=== PATIENT | female | born 1950 | race Two or more races ===

== ENCOUNTER 2016-08-09 19:14 | Inpatient (IN) | payer MEDICARE, MEDICAID ==
[~2016-08-09] VITALS: Ht 172.7 cm; Wt 78.6 kg
--- NOTE | 2016-08-09 20:00 | NUR ---
PT BIB C/O GENERALIZED WEAKNESS, BODY ACHES, NON-PRODUCTIVE COUGH AND "FLU SYMPTOMS". NAD NOTED. RESP EVEN UNLABORED. SKIN WARM NONDIAPHORETIC. PT IS HD DEPENDENT; LAST HD TODAY WITH NO COMPLICATIONS. PT IS AMBULATORY AT BASELINE BUT AT THIS POINT FEELS TOO WEAK TO AMBULATE. IN ER BED 10 ON MONITOR.
--- NOTE | 2016-08-09 20:28 | NUR ---
Johny EJ 20G IV STARTED BY SYED RM NP
[2016-08-09 20:37] LABS: BASOPHILS # (AUTO) 0.6 /CMM (0.0-0.2); BASOPHILS % (AUTO) 3.5 % (0.0-2.0); EOSINOPHILS % (AUTO) 0.3 % (0.0-6.0); HEMATOCRIT 34 % (33-45); HEMOGLOBIN 11.1 g/dL (11.5-14.8); LYMPHOCYTES # (AUTO) 0.6 /CMM (0.8-4.8); LYMPHOCYTES % (AUTO) 3.6 % (20.0-44.0); MEAN CORPUSCULAR HEMOGLOBIN 30 PG (26.0-33.0); MEAN CORPUSCULAR HGB CONC 32 g/dl (31.0-36.0); MEAN CORPUSCULAR VOLUME 93 fL (82-100); MONOCYTES # (AUTO) 0.9 /CMM (0.1-1.30); MONOCYTES % (AUTO) 5.7 % (2.0-12.0); NEUTROPHILS % (AUTO) 86.9 % (43.0-81.0); PLATELET COUNT (AUTO) 201 /CMM (150-450); RDW COEFFICIENT OF VARIATION 14.5 (11.5-15.0); RED BLOOD CELL COUNT(AUTO) 3.68 MIL/uL (4.0-5.2); WHITE BLOOD COUNT (AUTO) 16.1 K/uL (4.3-11.0)
[2016-08-09 20:44] LABS: CALCIUM, SERUM 9.1 mg/dL (8.5-10.1); CREATININE 5.9 mg/dL (0.6-1.3); POTASSIUM 5.4 mmol/L (3.5-5.1)
[2016-08-09 20:46] LABS: INR 1.01 (0.87-1.13); PROTHROMBIN TIME 10.5 SECS (9.5-12.7)
[2016-08-09 20:53] LABS: TROPONIN I 0.037 ng/mL (0.00-0.056)
[2016-08-09 20:54] LABS: LACTIC ACID 1.3 mmol/L (0.4-2.0)
[2016-08-09 20:58] LABS: ALBUMIN 3.5 g/dL (3.4-5.0); BILIRUBIN,DIRECT 0.2 mg/dL (0.0-0.2); BILIRUBIN,TOTAL 0.5 mg/dL (0.2-1.0); TOTAL PROTEIN, SERUM 8.5 g/dL (6.4-8.2)
--- NOTE | 2016-08-09 21:09 | NUR ---
EPIC PAGED, DR. MAYKEL Hernandez COMPLEX HUMAN RESOURCES MANAGER
--- NOTE | 2016-08-09 21:11 | NUR ---
CALLED NURSING SUP. FOR TELE BED
[2016-08-09 21:21] LABS: APPEARANCE,URINE Clear (CLEAR); BILIRUBIN,URINE Negative (NEGATIVE); BLOOD, URINE Trace-intact Ery/uL (NEGATIVE); COLOR,URINE Yellow (YELLOW); KETONES,URINE Negative (NEGATIVE); LEUKOCYTE ESTERASE ,URINE Negative (NEGATIVE); NITRITE, URINE Negative (NEGATIVE)
[2016-08-09] MEDS ORDERED: PIPERACILLIN /TAZOBACTAM 3.375 G in IV D5W 50 ML IV ONE (21:30)
[2016-08-09] MEDS ORDERED: FUROSEMIDE 20 MG/2 ML VIAL IV ONE (21:30)
[2016-08-09] MEDS ORDERED: VANCOMYCIN 1 GM in IV D5W 250 ML IV ONE (21:30)
[2016-08-09 21:33] LABS: UGLUCOSE 100 MG/DL mg/dL (NEGATIVE)
[2016-08-09 21:34] LABS: PROTEIN,URINE 300 mg/dl (NEGATIVE)
[2016-08-09 21:37] LABS: ADD URINE CULTURE YES; BACTERIA,URINE Many /HPF (None Seen); SQUAMOUS EPITHELIAL CELL,UR Few /HPF (None Seen); WBC,URINE 0-2 /HPF (0-3)
--- NOTE | 2016-08-09 21:45 | NUR ---
PT RESTING QUIETLY IN BED, NAD NOTED. ALL NEEDS ATTENDED TO. ON 2L VIA NC FOR SUPPORT.
[2016-08-09] MEDS ORDERED: VANCOMYCIN 1 GM VIAL ONE (22:05)
[2016-08-09] MEDS ORDERED: IV SET PRIMARY PUMP SET 1 EA INFUS.SET MC ONE (22:05)
[2016-08-09] MEDS ORDERED: PIPERACILLIN /TAZOBACTAM 3.375 G VIAL IV ONE (22:05)
[2016-08-09] MEDS ORDERED: FUROSEMIDE 20 MG/2 ML VIAL ONE (22:05)
[2016-08-09] MEDS ORDERED: IV D5W 0 ML IV ONE (22:05)
[2016-08-09] MEDS ORDERED: Z GUARD REMEDY 2 OZ OINT TP PRN (22:30)
[2016-08-09] MEDS ORDERED: ACETAMINOPHEN 325 MG TABLET PO PRN (22:30)
[2016-08-09] MEDS ORDERED: HYDROCODONE/APAP 5/325MG 1 EACH TABLET PO PRN (22:30)
[2016-08-09] MEDS ORDERED: ZOLPIDEM TARTRATE 5 MG TABLET PO PRN (22:30)
[2016-08-09] MEDS ORDERED: MAGNESIUM HYDROXIDE 30 ML UDC PO PRN (22:30)
[2016-08-09] MEDS ORDERED: MAG HYDROX/AL HYDROX/SIMETH 30 ML UDC PO PRN (22:30)
[2016-08-09] MEDS ORDERED: ONDANSETRON HCL/PF 4 MG/2 ML VIAL IVP PRN (22:30)
--- NOTE | 2016-08-09 22:35 | NUR ---
REPORT GIVEN TO GINO
[2016-08-09 22:50] VITALS: BP 126/63
--- NOTE | 2016-08-09 22:50 | NUR ---
DR JEAN AT BEDSIDE
[2016-08-09 22:55] VITALS: BP 126/63
--- NOTE | 2016-08-09 22:55 | NUR ---
PT TRANSPORTED TO TELE IN STABLE CONDITION VIA ACLS PROTOCOL
--- NOTE | 2016-08-09 22:58 | NUR ---
PROCESS PROJECT ENGINEER NOTES RECEIVED PT FROM THE ER, VIA STRETCHER BUT PT ABLE TO WALK FROM OUTSIDE THE DOOR TO HER BED INSIDE THE ROOM SAFELY WITH ASSISTANCE. AT BED SIDE. PT IS A/O X4 , VERBALLY RESPONSIVE. NO DISTRESS, ON 02 @ 2LPM VIA NC LISA WELL. IV SITE ON LEJ G20 INTACT AND PATENT, NO S/S OF INFILTRATION NOTED. DENIES ANY PAIN OR DISCOMFORT AT THIS TIME. DENIES ANY SOB. BODY ASSESSMENT DONE. NO S/S OF HYPO/ HYPERGLYCEMIA NOTED. ALL NEEDS ATTENDED AND MET. KEPT COMFORTABLE. CALL LIGHT WITHIN REACH. SAFETY PRECAUTIONS OBSERVED. WILL CONT TO MONITOR.
[2016-08-09] MEDS ORDERED: FOLI1TAB16 PO (23:55)
[2016-08-09] MEDS ORDERED: HYDR-4076 PO (23:55)
[2016-08-09] MEDS ORDERED: FOLI0.8T23 PO (23:55)
[2016-08-09] MEDS ORDERED: CLON0.1T PO (23:55)
[2016-08-09] MEDS ORDERED: METO1TAB39 PO (23:55)
[2016-08-09] MEDS ORDERED: CALC667C6 PO (23:55)
[2016-08-09] MEDS ORDERED: BLOO-668 IN (23:58)
[2016-08-10 04:00] VITALS: BP 129/70
[2016-08-10] MEDS ORDERED: PIPERACILLIN /TAZOBACTAM 2.25 G VIAL IV ONE (05:41)
[2016-08-10] MEDS ORDERED: IV SET PRIMARY PUMP SET 1 EA INFUS.SET MC ONE (05:43)
[2016-08-10] MEDS: PIPERACILLIN /TAZOBACTAM 2.25 G in IV D5W 50 ML IV SCH ×3 (06:02→22:03)
[2016-08-10 06:35] LABS: BASOPHILS % (AUTO) 0.1 % (0.0-2.0); EOSINOPHILS % (AUTO) 0.1 % (0.0-6.0); HEMATOCRIT 34 % (33-45); HEMOGLOBIN 10.9 g/dL (11.5-14.8); LYMPHOCYTES # (AUTO) 1.2 /CMM (0.8-4.8); LYMPHOCYTES % (AUTO) 8.4 % (20.0-44.0); MEAN CORPUSCULAR HEMOGLOBIN 30 PG (26.0-33.0); MEAN CORPUSCULAR HGB CONC 32 g/dl (31.0-36.0); MEAN CORPUSCULAR VOLUME 94 fL (82-100); MONOCYTES # (AUTO) 1.1 /CMM (0.1-1.30); MONOCYTES % (AUTO) 7.8 % (2.0-12.0); NEUTROPHILS # (AUTO) 11.9 /CMM (1.8-8.9); NEUTROPHILS % (AUTO) 83.6 % (43.0-81.0); PLATELET COUNT (AUTO) 210 /CMM (150-450); RDW COEFFICIENT OF VARIATION 15.2 (11.5-15.0); WHITE BLOOD COUNT (AUTO) 14.2 K/uL (4.3-11.0)
[2016-08-10 06:37] LABS: CALCIUM, SERUM 8.9 mg/dL (8.5-10.1); CREATININE 6.7 mg/dL (0.6-1.3); MAGNESIUM 2.2 mg/dL (1.8-2.4); PHOSPHORUS 2.8 mg/dL (2.5-4.9); POTASSIUM 5.7 mmol/L (3.5-5.1)
[2016-08-10 06:45] LABS: THYROID STIMULATING HORMONE 0.588 uIU/mL (0.358-3.74)
--- NOTE | 2016-08-10 06:57 | NUR ---
FINISH SPECIALIST NOTES PT IN BED, RESTING COMFORTABLE. PT IS A/O X4 , VERBALLY RESPONSIVE. NO DISTRESS, ON 02 @ 2LPM VIA NC LISA WELL. IV SITE ON LEJ G20 INTACT AND PATENT, NO S/S OF INFILTRATION NOTED. DENIES ANY PAIN OR DISCOMFORT AT THIS TIME. DENIES ANY SOB. BODY ASSESSMENT DONE. NO S/S OF HYPO/ HYPERGLYCEMIA NOTED. ALL NEEDS ATTENDED AND MET. KEPT COMFORTABLE. CALL LIGHT WITHIN REACH. SAFETY PRECAUTIONS OBSERVED. WILL ENDORSE TO NEXT SHIFT FOR PRASHANT.
[2016-08-10 07:12] VITALS: BP 133/69
--- NOTE | 2016-08-10 07:34 | NUR ---
IMAGING ASSISTANT OPENING NOTE PATIENT IS ALERT AND ORIENTED x4. NO PAIN AT THIS TIME. NO SOB OR DISTRESS NOTED.IV INTACT AND PATENT NO REDNESS OR SWELLING NOTED. SAFETY MEASURES IMPLEMENTED.CALL LIGHT WITHIN REACH. ON 2 L/MIN OF OXYGEN VIA NASAL CANNULA. WILL CONTINUE TO MONITOR
[2016-08-10 08:00] VITALS: BP 133/69
[2016-08-10] MEDS ORDERED: INSU100V27 SQ ×2 (08:07)
[2016-08-10] MEDS ORDERED: INSU100I19 SQ (08:07)
[2016-08-10] MEDS ORDERED: FEE PK DOSING 1 MIN EA MC ONE (08:50)
[2016-08-10] MEDS: PANTOPRAZOLE 40 MG TABLET.DR PO SCH (08:58)
[2016-08-10] MEDS ORDERED: DEXTROSE 50%-WATER 50 ML DISP.SYRIN IV PRN (09:30)
[2016-08-10] MEDS ORDERED: SODIUM POLYSTYRENE SULFONATE 15 G/60 ML BOTTLE PO ONE (09:30)
[2016-08-10] MEDS: METOPROLOL SUCCINATE 50 MG TAB.SR.24H PO SCH (09:58)
[2016-08-10] MEDS: HYDROCHLOROTHIAZIDE 25 MG TABLET PO SCH (09:58)
[2016-08-10] MEDS: BLOOD SUGAR DIAGNOSTIC 1 EACH STRIP IN SCH ×3 (11:45→22:03)
[2016-08-10] MEDS: INSULIN REGULAR, HUMAN 100 UNIT/ML 3 ML VIAL SQ PRN ×2 (11:47→22:32)
[2016-08-10 12:00] VITALS: BP 130/71
[2016-08-10] MEDS: CALCIUM ACETATE 667 MG TABLET PO SCH ×2 (13:13→18:00)
[2016-08-10 16:00] VITALS: BP 124/71
[2016-08-10] MEDS ORDERED: VANCOMYCIN 500 MG in IV D5W 100 ML IV PRN (16:00)
[2016-08-10] MEDS: hydrALAZINE HCL 25 MG TABLET PO SCH ×2 (16:06→16:18)
[2016-08-10] MEDS: CLONIDINE HCL 0.1 MG TABLET PO PRN (18:39)
--- NOTE | 2016-08-10 18:45 | NUR ---
TERRAPIN FISHER CLOSING NOTE PATIENT IS ALERT AND ORIENTED x4. NO PAIN AT THIS TIME. NO SOB OR DISTRESS NOTED. ALL DUE MEDICATION GIVEN ORDERED. SAFETY MEASURES IMPLEMENTED. CALL LIGHT WITHIN REACH AT ALL TIMES. RECEIVING HEMODIALYSIS AT THIS TIME. WILL ENDORSE TO EQUITY DIRECTOR NURSE
[2016-08-10 20:00] VITALS: BP 143/64
--- NOTE | 2016-08-10 20:57 | NUR ---
MS RN NOTE RECEIVED PATIENT AWAKE, ALERT AND ORIENTED IN BED. NO RESPIRATORY DISTRESS AT THIS TIME. PATIENT DENIES ANY PAIN OR DISCOMFORT. JUST COMPLETED HD. 2L OUT. TOLERATED WELL. NO BLEEDING NOTED. IV SITE INTACT. NO INFILTRATION NOTED. BED LOCKED AND IN LOWEST POSITION. SIDE RAILS UP, CALL LIGHT WITHIN REACH. WILL CONTINUE TO MONITOR.
[2016-08-10] MEDS: INSULIN DETEMIR 100 UNIT/ML CARTRIDGE SQ SCH (22:31)
--- NOTE | 2016-08-10 22:39 | NUR ---
ms rn note blood sugar 175. 3 units given. Will continue to monitor.
[2016-08-11] MEDS: PIPERACILLIN /TAZOBACTAM 2.25 G in IV D5W 50 ML IV SCH ×3 (05:39→21:21)
[2016-08-11 06:33] LABS: CALCIUM, SERUM 8.8 mg/dL (8.5-10.1); CREATININE 5.9 mg/dL (0.6-1.3)
--- NOTE | 2016-08-11 07:30 | NUR ---
MS RN OPENING NOTE PATIENT IS ALERT AND ORIENTED x4. NO PAIN AT THIS TIME. NO SOB OR DISTRESS NOTED. CALL LIGHT WITHIN REACH. SAFETY MEASURES IMPLEMENTED. ABLE TO COMMUNICATE NEEDS. IV INTACT AND PATENT NO REDNESS OR SWELLING NOTED. WILL CONTINUE TO MONITOR.
[2016-08-11 08:00] VITALS: BP 146/75
[2016-08-11] MEDS: VIT B CMPLX 3/FA/VIT C/BIOTIN 1 TAB TABLET PO SCH (08:15)
[2016-08-11] MEDS: PANTOPRAZOLE 40 MG TABLET.DR PO SCH (08:15)
[2016-08-11] MEDS: FOLIC ACID 1 MG TABLET PO SCH (08:15)
[2016-08-11] MEDS: CALCIUM ACETATE 667 MG TABLET PO SCH ×3 (08:15→17:17)
[2016-08-11] MEDS: BLOOD SUGAR DIAGNOSTIC 1 EACH STRIP IN SCH ×4 (08:17→21:38)
[2016-08-11] MEDS: hydrALAZINE HCL 25 MG TABLET PO SCH ×2 (08:17→16:20)
[2016-08-11] MEDS: HYDROCHLOROTHIAZIDE 25 MG TABLET PO SCH (08:18)
[2016-08-11] MEDS ORDERED: METOPROLOL SUCCINATE PO SCH (09:00)
[2016-08-11] MEDS ORDERED: HCTZ PO SCH (09:00)
[2016-08-11] MEDS ORDERED: [UNRECOGNIZED DRUG - OTHER] PO SCH (09:00)
[2016-08-11] MEDS: METOPROLOL SUCCINATE 50 MG TAB.SR.24H PO SCH (09:30)
--- NOTE | 2016-08-11 10:00 | NUR ---
MS RN NOTE HELD PATIENTS BLOOD PRESSURE THIS MORNING. WILL BE RECEIVING HEMODIALYSIS
[2016-08-11] MEDS: INSULIN REGULAR, HUMAN 100 UNIT/ML 3 ML VIAL SQ PRN ×2 (11:51→17:18)
[2016-08-11] MEDS ORDERED: IV SET PRIMARY PUMP SET 1 EA INFUS.SET MC ONE ×2 (14:07→21:26)
[2016-08-11 16:00] VITALS: BP 147/66
[2016-08-11] MEDS: LACTOBACILLUS RHAMNOSUS GG 1 EACH CAP.SPRINK PO SCH (16:18)
[2016-08-11] MEDS ORDERED: VANCOMYCIN 1 GM in IV D5W 250 ML IV ONE (17:00)
--- NOTE | 2016-08-11 18:21 | NUR ---
MS ANCHOR TACK PULLER NOTE PATIENT IS ALERT AND ORIENTED x4. NO PAIN AT THIS TIME. NO SOB OR DISTRESS NOTED. ALL DUE MEDICATION GIVEN ORDERED. CALL LIGHT WITHIN REACH AT ALL TIMES. SAFETY MEASURES IMPLEMENTED. RECEIVED HEMODIALYSIS THIS MORNING. NO SIGNIFICANT CHANGES WITH PATIENT. STABLE THROUGHOUT THE DAY. POSSIBLE DISCHARGE IN THE MORNING, WILL ENDORSE TO MOBILE SOLUTIONS ARCHITECT NURSE Addendum: 08/11/16 at 1823 by AQUILINO DAVID RN CLOSING
[2016-08-11 19:00] VITALS: BP 156/75
--- NOTE | 2016-08-11 19:30 | NUR ---
MS RN OPENING NOTES: PATIENT SITTING ON CHAIR, AOX4, BREATHING EVEN AND UNLABORED BUT NOTED SOME OCCASIONAL NON PRODUCTIVE COUGH. BREATH SOUNDS CLEAR AT UPPER LUNG BUCKLEY AND DIMINISHED AT BASES. APPEARS CALM AND IN NO DISTRESS. DENIES ANY PAIN OR HEADACHE AT THIS TIME. PATIENT HAS PIV ACCESS OVER L EJ, G 20 INTACT AND PATENT TO FLUSH. SIERRA AV FISTULA HAS PALPABLE THRILLS. PROVIDED FOR COMFORT AND SAFETY. WILL CONT TO MONITOR.
[2016-08-11 20:00] VITALS: BP 156/75
[2016-08-11] MEDS ORDERED: IV NS 0.9% 250 ML IV ONE (21:26)
[2016-08-11] MEDS ORDERED: SECONDARY IV SET 1 EA INFUS.SET MC ONE (21:26)
--- NOTE | 2016-08-11 22:00 | NUR ---
RN NOTES: PT'S BS CHECKED AT 123 MG/DL. NO REGULAR INSULIN COVERAGE NEEDED AT THIS TIME, ADMINISTERED ONLY LEVEMIR SCHEDULED. GAVE LIGHT SNACK TO PATIENT. WILL CONT TO MONITOR.
[2016-08-11] MEDS: INSULIN DETEMIR 100 UNIT/ML CARTRIDGE SQ SCH (22:44)
[2016-08-12 04:00] VITALS: BP 176/83
[2016-08-12] MEDS: PIPERACILLIN /TAZOBACTAM 2.25 G in IV D5W 50 ML IV SCH (04:32)
[2016-08-12] MEDS: CLONIDINE HCL 0.1 MG TABLET PO PRN (04:38)
--- NOTE | 2016-08-12 04:40 | NUR ---
RN NOTES: PATIENT'S BP CHECKED AT 176/83, HR: 71. ADMINISTERED CLONIDINE 0.1 MG PO. ADVISED PATIENT TO REMAIN IN BED AND ASK FOR ASSISTANCE IN SITTING UP. WILL CONT TO MONITOR.
[2016-08-12] MEDS ORDERED: VANCOMYCIN 500 MG in IV D5W 100 ML IV PRN (06:00)
[2016-08-12] MEDS: PANTOPRAZOLE 40 MG TABLET.DR PO SCH (06:31)
[2016-08-12] MEDS: BLOOD SUGAR DIAGNOSTIC 1 EACH STRIP IN SCH (06:31)
[2016-08-12] MEDS: INSULIN REGULAR, HUMAN 100 UNIT/ML 3 ML VIAL SQ PRN (06:33)
[2016-08-12 06:37] VITALS: BP 145/79
--- NOTE | 2016-08-12 07:04 | NUR ---
MS RN CLOSING NOTES: PATIENT IN BED, AOX4, ON O2 AT 2 LPM VIA NC. BREATHING EVEN AND UNLABORED. OCCASIONAL COUGHING WAS NOTED WHILE AWAKE. PIV OVER R EJ INTACT AND PATENT TO FLUSH. DUE MEDS GIVEN. BP RECHECKED AT 145/79 THIS AM. PROVIDED FOR COMFORT AND SAFETY. BED IN LOCKED AND LOWEST POSITION. SIDERAILS UP X3. WILL ENDORSE TO AM RN FOR PRASHANT.
--- NOTE | 2016-08-12 07:20 | NUR ---
ms rn Initial notes Received patient in bed, awake, head of bed elevated, no SOB or distress noted. On 2 lpm via NC and tolerated well. Alert and oriented x 4, verbally responsive and able to make needs known. IV intact and patent HL only. Kept patient clean and comfortable in bed, call light within patient reach, will continue to monitor accordingly.
[2016-08-12 07:41] LABS: BASOPHILS % (AUTO) 0.8 % (0.0-2.0); EOSINOPHILS # (AUTO) 0.5 /CMM (0.0-0.7); EOSINOPHILS % (AUTO) 9.7 % (0.0-6.0); HEMATOCRIT 35 % (33-45); HEMOGLOBIN 11.1 g/dL (11.5-14.8); LYMPHOCYTES % (AUTO) 18.4 % (20.0-44.0); MEAN CORPUSCULAR HEMOGLOBIN 30 PG (26.0-33.0); MEAN CORPUSCULAR HGB CONC 32 g/dl (31.0-36.0); MEAN CORPUSCULAR VOLUME 94 fL (82-100); MONOCYTES # (AUTO) 0.7 /CMM (0.1-1.30); MONOCYTES % (AUTO) 14.4 % (2.0-12.0); NEUTROPHILS # (AUTO) 2.9 /CMM (1.8-8.9); NEUTROPHILS % (AUTO) 56.7 % (43.0-81.0); PLATELET COUNT (AUTO) 216 /CMM (150-450); RDW COEFFICIENT OF VARIATION 15.4 (11.5-15.0); RED BLOOD CELL COUNT(AUTO) 3.72 MIL/uL (4.0-5.2); WHITE BLOOD COUNT (AUTO) 5.2 K/uL (4.3-11.0)
[2016-08-12 08:00] VITALS: BP 168/84
[2016-08-12 08:24] LABS: CALCIUM, SERUM 9.4 mg/dL (8.5-10.1); CREATININE 5.9 mg/dL (0.6-1.3); POTASSIUM 4.8 mmol/L (3.5-5.1)
[2016-08-12] MEDS: FOLIC ACID 1 MG TABLET PO SCH (08:27)
[2016-08-12] MEDS: LACTOBACILLUS RHAMNOSUS GG 1 EACH CAP.SPRINK PO SCH (08:27)
[2016-08-12] MEDS: hydrALAZINE HCL 25 MG TABLET PO SCH (08:27)
[2016-08-12] MEDS: VIT B CMPLX 3/FA/VIT C/BIOTIN 1 TAB TABLET PO SCH (08:27)
[2016-08-12] MEDS: CALCIUM ACETATE 667 MG TABLET PO SCH (08:27)
[2016-08-12 08:28] VITALS: BP 154/80
[2016-08-12] MEDS: HYDROCHLOROTHIAZIDE 25 MG TABLET PO SCH (08:28)
[2016-08-12] MEDS: METOPROLOL SUCCINATE 50 MG TAB.SR.24H PO SCH (08:28)
--- NOTE | 2016-08-12 10:15 | NUR ---
ms keg varnisher notes Discharge instructions given to patient and able to understand instructions. Prescription given. Signed discharge paper and belonging list. No complaint of pain or discomfort, nor chest pain or SOB. Removed IV access and pressured applied to prevent bleeding. Pictures taken and filed in the chart. Valu came to apple picker the patient. Patient left the hospital in stable condition. Vital signs checked and recorded. MD and charge nurse aware. Pneumonia vaccine not given due to refusal. Explained the risk and benefits x 3 and still refused. Flu vaccine is out of season. MD and charge nurse aware.
== END 2016-08-12 10:20 | disposition home or self-care (01) | DRG 193 ==
LOC: ER 19:19 → TELE 21:39 → MED 08-10 09:09
PROVIDERS: ADMIT Internal Medicine; ATTEND Internal Medicine
PROC: 5A1D60Z (ICD-10-PCS; principal; 2016-08-10)
DX: J15.9 Unspecified bacterial pneumonia (principal); N18.6 End stage renal disease; I12.0 Hypertensive chronic kidney disease with stage 5 chronic kidney disease or end stage renal disease; D63.8 Anemia in other chronic diseases classified elsewhere; E11.22 Type 2 diabetes mellitus with diabetic chronic kidney disease; E66.9 Obesity, unspecified; Z99.2 Dependence on renal dialysis; E87.5 Hyperkalemia; E78.5 Hyperlipidemia, unspecified; Z68.26 Body mass index [BMI] 26.0-26.9, adult; D72.829 Elevated white blood cell count, unspecified; Z95.0 Presence of cardiac pacemaker; E83.9 Disorder of mineral metabolism, unspecified
CPT/HCPCS: 36415; 71010-TC; 80048-TC; 80061-TC; 80076-TC; 80202-TC; 81000-TC; 82962-TC; 83605-TC; 83735-TC; 83880; 84100-TC; 84443-TC; 84484-TC; 85025-TC; 85730-TC; 87040-TC; 87081-TC; 87086-TC; 93307-TC; A4606; A6403; J1815; J1940; J2543; J3370; J7050; J7060; Z7610

== ENCOUNTER 2018-09-25 09:24 | Inpatient (IN) | payer MEDICARE, MEDICAID ==
[~2018-09-25] VITALS: Ht 172.7 cm; Wt 86.0 kg
[~2018-09-25 09:24] MED LIST: BLOO-668 IN; CALC667C6 PO; CLON0.1T PO; FOLI0.8T23 PO; FOLI1TAB16 PO; HYDR-4076 PO; INSU100I19 SQ; INSU100V27 SQ; METO1TAB39 PO
--- NOTE | 2018-09-25 09:45 | NUR ---
patient BIBRA 889 C/O DIARRHEA STARTED YESTERDAY, 5 BM THIS MORNING. PATIENT A&O X 3, NO ACUTE DISTRESS. AV SHUNT ON SIERRA. LAST HD YESTERDAY PER PATIENT
[2018-09-25] MEDS ORDERED: IV NS 0.9% 1,000 ML BAG IV ONE (10:00)
--- NOTE | 2018-09-25 10:02 | NUR ---
PATIENT REPORTS SHE DOESNT URINATE ANYMORE. DR RICHARDS MADE AWARE AND GAVE OK TO CANCEL UA
[2018-09-25 10:10] LABS: BASOPHILS % (AUTO) 0.1 % (0.0-2.0); EOSINOPHILS % (AUTO) 0.1 % (0.0-6.0); HEMATOCRIT 37 % (33-45); HEMOGLOBIN 12.3 g/dL (11.5-14.8); LYMPHOCYTES # (AUTO) 0.4 /CMM (0.8-4.8); LYMPHOCYTES % (AUTO) 4.1 % (20.0-44.0); MEAN CORPUSCULAR HGB CONC 33 g/dl (31.0-36.0); MEAN CORPUSCULAR VOLUME 98 fL (82-100); MONOCYTES # (AUTO) 1.1 /CMM (0.1-1.30); MONOCYTES % (AUTO) 12.3 % (2.0-12.0); NEUTROPHILS # (AUTO) 7.2 /CMM (1.8-8.9); NEUTROPHILS % (AUTO) 83.4 % (43.0-81.0); PLATELET COUNT (AUTO) 121 /CMM (150-450); RED BLOOD CELL COUNT(AUTO) 3.78 MIL/uL (4.0-5.2); WHITE BLOOD COUNT (AUTO) 8.6 K/uL (4.3-11.0)
[2018-09-25 10:16] LABS: CALCIUM, SERUM 9.1 mg/dL (8.5-10.1); CREATININE 5.5 mg/dL (0.6-1.3); POTASSIUM 3.8 mmol/L (3.5-5.1)
[2018-09-25 10:22] LABS: ALBUMIN 3.1 g/dL (3.4-5.0); BILIRUBIN,DIRECT 0.1 mg/dL (0.0-0.2); BILIRUBIN,TOTAL 0.5 mg/dL (0.2-1.0); TOTAL PROTEIN, SERUM 8.3 g/dL (6.4-8.2)
[2018-09-25] MEDS ORDERED: LINA5TAB PO (10:27)
[2018-09-25] MEDS ORDERED: PANT40TA4 PO (10:27)
[2018-09-25] MEDS ORDERED: METO-356 PO (10:27)
[2018-09-25] MEDS ORDERED: CLOP75TA15 PO (10:27)
--- NOTE | 2018-09-25 10:57 | NUR ---
BED 201-2
--- NOTE | 2018-09-25 11:47 | NUR ---
[facility] on-call paged- Dr. Kent
--- NOTE | 2018-09-25 12:53 | NUR ---
REPORT GIVEN TO RENATA SALVADOR FOR PRASHANT. PATIENT TO GO TO 207-2
[2018-09-25] MEDS ORDERED: Z GUARD REMEDY 2 OZ OINT TP PRN (13:30)
[2018-09-25] MEDS ORDERED: MAG HYDROX/AL HYDROX/SIMETH 30 ML UDC PO PRN (13:30)
[2018-09-25] MEDS ORDERED: ONDANSETRON HCL/PF 4 MG/2 ML VIAL IVP PRN (13:30)
[2018-09-25] MEDS ORDERED: MAGNESIUM HYDROXIDE 30 ML UDC PO PRN (13:30)
[2018-09-25] MEDS ORDERED: ZOLPIDEM TARTRATE 5 MG TABLET PO PRN (13:30)
[2018-09-25] MEDS ORDERED: HYDROCODONE/APAP 5/325MG 1 EACH TABLET PO PRN (13:30)
--- NOTE | 2018-09-25 13:36 | NUR ---
PATIENT TRANSFERRED TO [facility]IA [facility]. TRANSFERRED IN STABLE CONDITION. NO ACUTE DISTRESS. DENIES ANY PAIN OR DISCOMFORT.
--- NOTE | 2018-09-25 13:45 | NUR ---
MS/RN New admission New admission from emergency room with diagnosis of diarrhea and dehydration. Patient fully admitted, awaiting orders from Dr Kent.
[2018-09-25 14:00] VITALS: BP 142/78
[2018-09-25] MEDS: IV 1/2NS 1000 ML 1,000 ML IV PRN (15:02)
--- NOTE | 2018-09-25 15:30 | NUR ---
MS/RN S/B Dr Odonnell Seen by MD - orders entered and carried out. Still waiting for HDX to be arranged, patient's last dialysis was this morning, with Dr Jonas patients primary book retailer.
[2018-09-25 16:00] VITALS: BP 142/78
--- NOTE | 2018-09-25 17:00 | NUR ---
MS/RN Blood sugar Blood sugar at 5p - 157. Coverage non administered as patient not eating.
[2018-09-25] MEDS: BLOOD SUGAR DIAGNOSTIC 1 EACH STRIP IN SCH (17:42)
[2018-09-25] MEDS: hydrALAZINE HCL 25 MG TABLET PO SCH (17:42)
--- NOTE | 2018-09-25 18:45 | NUR ---
MS/RN End note Patient remains in stable condition, all needs attended. Will endorse to shift leader.
--- NOTE | 2018-09-25 19:07 | NUR ---
RN MS OPENING NOTES RECEIVED PATIENT IN BED AWAKE ALERT AND ORIENTED4, RESPIRATIONS EVEN AND UNLABORED WITH EQUAL RISE AND FALL OF CHEST, DENIES ANY PAIN OR DISCOMFORT AT THIS TIME, DENIES NAUSEA,IV SITE TO LEFT HAND #50G INTACT AND PATENT, IVF RUNNING ORDERED, NO REDNESS, NO INFILTRATION, FLUIDS OFFERED AND PROVIDED.REPOSITIONED, PERINEAL CARE PROVIDED, ORIENTED TO STAFF AND CALL LIGHT AND KEPT WITHIN REACH, SAFETY PRECAUTIONS IN PLACE,LOW BED AND LOCKED, REMAINS COMFORTABLE AT THIS TIME, ALL NEEDS ATTENDED WILL CONTINUE TO MONITOR AND ADDRESS NEEDS.
[2018-09-25 20:00] VITALS: BP 153/76
--- NOTE | 2018-09-25 20:00 | NUR ---
RN MS NOTES UPON PROVIDING PERINEAL CARE NOTED PERIANAL AREA WITH REDNESS AND EXCORIATION. KEPT CLEAN AND DRY, ZGUARD APPLIED FOR SKIN MANAGEMENT AND PROTECTION.
[2018-09-25 20:40] VITALS: BP 153/76
--- NOTE | 2018-09-25 22:27 | NUR ---
RN MS NOTES TEMPERATURE REASSESSED, NOTED 101.1 COOLING MEASURES PROVIDED, NOTIFIED HOSPITALIST NEW ORDER TO ADMINISTER TYLENOL. NO FURTHER ORDERS AT THIS TIME, WILL CONTINUE TO MONITOR FOR EFFECTIVENESS.
[2018-09-25] MEDS: ACETAMINOPHEN 325 MG TABLET PO PRN (22:29)
--- NOTE | 2018-09-25 22:29 | NUR ---
RN NOTES TYLENOL PRN ADMINISTERED FOR ELEVATED TEMPERATURE.
[2018-09-25 22:34] VITALS: BP 147/70
[2018-09-26 00:05] VITALS: BP 147/70
--- NOTE | 2018-09-26 00:05 | NUR ---
RN MS NOTES TEMPERATURE DECREASED TO 99.4. TYLENOL AND COOLING MEASURES EFFECTIVE.
[2018-09-26 06:45] LABS: BASOPHILS % (AUTO) 0.4 % (0.0-2.0); EOSINOPHILS % (AUTO) 0.5 % (0.0-6.0); HEMATOCRIT 39 % (33-45); HEMOGLOBIN 12.7 g/dL (11.5-14.8); LYMPHOCYTES # (AUTO) 0.4 /CMM (0.8-4.8); MEAN CORPUSCULAR HGB CONC 33 g/dl (31.0-36.0); MEAN CORPUSCULAR VOLUME 99 fL (82-100); MONOCYTES # (AUTO) 0.8 /CMM (0.1-1.30); MONOCYTES % (AUTO) 14.8 % (2.0-12.0); NEUTROPHILS # (AUTO) 4.4 /CMM (1.8-8.9); NEUTROPHILS % (AUTO) 77.3 % (43.0-81.0); PLATELET COUNT (AUTO) 130 /CMM (150-450); RED BLOOD CELL COUNT(AUTO) 3.98 MIL/uL (4.0-5.2); WHITE BLOOD COUNT (AUTO) 5.7 K/uL (4.3-11.0)
[2018-09-26 07:04] LABS: BILIRUBIN,TOTAL 0.3 mg/dL (0.2-1.0); CALCIUM, SERUM 9.3 mg/dL (8.5-10.1); MAGNESIUM 1.9 mg/dL (1.8-2.4); PHOSPHORUS 4.7 mg/dL (2.5-4.9); POTASSIUM 3.9 mmol/L (3.5-5.1)
--- NOTE | 2018-09-26 07:08 | NUR ---
RN MS CLOSING NOTES PATIENT IN BED AWAKE ALERT AND ORIENTED X 4, RESPIRATIONS EVEN AND UNLABORED WITH EQUAL RISE AND FALL OF CHEST, DENIES ANY PAIN OR DISCOMFORT AT THIS TIME,IV SITE TO LEFT HAND #50G INTACT AND PATENT, IVF RUNNING ORDERED, NO REDNESS, NO INFILTRATION, FLUIDS OFFERED AND PROVIDED.REPOSITIONED, PERINEAL CARE PROVIDED, NOTED PERIANAL REDNESS, ZGUARD APPLIED AWAITING WOUND CARE CONSULT,CALL LIGHT KEPT WITHIN REACH, SAFETY PRECAUTIONS IN PLACE,LOW BED AND LOCKED, REMAINS COMFORTABLE AT THIS TIME, ALL NEEDS ATTENDED WILL CONTINUE TO MONITOR AND ADDRESS NEEDS AND ENDORSE TO NEXT SHIFT.
[2018-09-26 07:21] LABS: CREATININE 7.6 mg/dL (0.6-1.3)
--- NOTE | 2018-09-26 07:30 | NUR ---
RN OPENING NOTE PT WAS RECEIVED IN BED AT LOWEST AND LOCKED POSITION WITH SIDE RAILS UP, A/O X4 BREATHING EVEN AND UNLABORED WITH NO S/S OF ANY DISTRESS OR PAIN AT THIS TIME, IV IS PATENT AND INTACT WITH IVF INFUSING, NOTED TO HAVE RECEIVED DIALYSIS YESTERDAY PER NIGHT RN, AWAITING FOR HRIS SPECIALIST TO SCHEDULE INPATIENT HD PER NIGHT RN, STOOL CULTURE RESULTS STILL PENDING, SAFETY PRECAUTIONS IN PLACE, CALL LIGHT WITHIN REACH, WILL MONITOR PT ACCORDINGLY.
[2018-09-26] MEDS: LINAGLIPTIN 5 MG TABLET PO SCH (08:26)
[2018-09-26] MEDS: VIT B CMPLX 3/FA/VIT C/BIOTIN 1 TAB TABLET PO SCH (08:26)
[2018-09-26] MEDS: FOLIC ACID 1 MG TABLET PO SCH (08:26)
[2018-09-26] MEDS: CALCIUM ACETATE 667 MG TABLET PO SCH (08:26)
[2018-09-26] MEDS: PANTOPRAZOLE 40 MG TABLET.DR PO SCH (08:26)
[2018-09-26] MEDS: METOPROLOL SUCCINATE 25 MG TAB.SR.24H PO SCH (08:27)
[2018-09-26] MEDS: CLOPIDOGREL BISULFATE 75 MG TABLET PO SCH (08:28)
[2018-09-26] MEDS: hydrALAZINE HCL 25 MG TABLET PO SCH ×3 (08:28→16:58)
[2018-09-26] MEDS: BLOOD SUGAR DIAGNOSTIC 1 EACH STRIP IN SCH ×3 (08:56→16:58)
[2018-09-26 09:13] VITALS: BP 136/78
--- NOTE | 2018-09-26 09:52 | NUR ---
WOUND CARE CONSULT: PT PRESENTS WITH PERIANAL REDNESS, PRESENT ON ADMISSION. PT NOTED TO BE INCONTINENT OF LOOSE STOOL. PT IS INDEPENDENT WITH BED MOBILITY. RECOMMENDATIONS MADE FOR SKIN PROTECTION AND DISCUSSED WITH NURSING STAFF. WILL SEE PRN. WEBB IN AGREEMENT WITH PLAN OF CARE. CURRENT ANTONTETE SCORE IS 18. Addendum: 09/26/18 at 0954 by RUDOLPH HAILE WNDNU Amended: Links added.
--- NOTE | 2018-09-26 10:00 | NUR ---
RN NOTE ISOLATION CART ORDERED AT THIS TIME UNTIL C.DIFF R/O
--- NOTE | 2018-09-26 13:00 | NUR ---
RN NOTE STOOL CULTURE CAME BACK NEGATIVE FOR C.DIFF
[2018-09-26] MEDS: IV 1/2NS 1000 ML 1,000 ML IV PRN (15:44)
[2018-09-26 17:32] VITALS: BP 141/68
--- NOTE | 2018-09-26 18:25 | NUR ---
RN CLOSING NOTE PT IN BED AT LOWEST AND LOCKED POSITION WITH SIDE RAILS UP, A/O X4 BREATHING EVEN AND UNLABORED WITH NO S/S OF ANY DISTRESS OR PAIN AT THIS TIME, IV IS PATENT AND INTACT WITH IVF INFUSING, SAFETY PRECAUTIONS IN PLACE, CALL LIGHT WITHIN REACH, ALL NEEDS ATTENDED TO, WILL ENDORSE TO DENTAL OFFICE ASSISTANT RN FOR PRASHANT.
--- NOTE | 2018-09-26 20:04 | NUR ---
MS RN NOTES RECEIVED PATIENT AWAKE IN BED WITH NO DISTRESS NOTED. CALL LIGHT WITHIN REACH. NO C/O PAIN OR DISCOMFORT. PERIPHERAL LINE INTACT AND PATENT. ENCOURAGED USE OF CALL LIGHT FOR ASSISTANCE AND VERBALIZED GOOD UNDERSTANDING. ROOM FREE OF CLUTTER AND ALL BELONGINGS KEPT NEAR BEDSIDE. WILL CONTINUE TO MONITOR.
--- NOTE | 2018-09-27 06:47 | NUR ---
MS RN NOTES PATIENT ASLEEP IN BED WITH NO DISTRESS NOTED. PERIPHERAL INTACT AND PATENT. ALL DUE MEDS GIVEN ORDERED WITH NO ASE NOTED. BED IN LOW LOCK SETTING. ROOM FREE OF CLUTTER AND BELONGINGS KEPT NEAR BEDSIDE. WILL ENDORSE TO ONCOMING SHIFT.
[2018-09-27 08:00] VITALS: BP 134/74
[2018-09-27] MEDS: CALCIUM ACETATE 667 MG TABLET PO SCH (08:13)
[2018-09-27] MEDS: PANTOPRAZOLE 40 MG TABLET.DR PO SCH (08:13)
[2018-09-27] MEDS: VIT B CMPLX 3/FA/VIT C/BIOTIN 1 TAB TABLET PO SCH (08:13)
[2018-09-27] MEDS: hydrALAZINE HCL 25 MG TABLET PO SCH ×3 (08:14→17:45)
[2018-09-27] MEDS: FOLIC ACID 1 MG TABLET PO SCH (08:14)
[2018-09-27] MEDS: CLOPIDOGREL BISULFATE 75 MG TABLET PO SCH (08:14)
[2018-09-27] MEDS: METOPROLOL SUCCINATE 25 MG TAB.SR.24H PO SCH (08:14)
[2018-09-27] MEDS: LINAGLIPTIN 5 MG TABLET PO SCH (08:14)
[2018-09-27] MEDS: BLOOD SUGAR DIAGNOSTIC 1 EACH STRIP IN SCH ×3 (09:00→17:00)
--- NOTE | 2018-09-27 13:30 | NUR ---
BEDSIDE HD WITH OUTPUT 1000ML. PATIENT STABLE
[2018-09-27 16:00] VITALS: BP 144/76
--- NOTE | 2018-09-27 16:07 | NUR ---
PATIENT NOTED WITH FEVER 100.6 . NOTIFIED
--- NOTE | 2018-09-27 16:13 | NUR ---
PER DR. SHAY HOLD D/C UNTIL TOMORROW MORNING
--- NOTE | 2018-09-27 16:20 | NUR ---
temperature rechecked: 99.4
[2018-09-27] MEDS: ACETAMINOPHEN 325 MG TABLET PO PRN (16:22)
--- NOTE | 2018-09-27 19:40 | NUR ---
MS/RN OPENING NOTES PT RECEIVED AWAKE, FAMILY AT BEDSIDE. ON ROOM AIR, BREATHING EVEN AND UNLABORED. DENIES SOB AND PAIN AT THIS TIME. IV TO LEFT HAND PATENT AND INTACT RUNNING IVF ORDERED. NO NEEDS EXPRESSED AT THIS TIME. HOB ELEVATED. BED IN LOW/LOCKED POSITION WITH CALL LIGHT IN REACH, BILAT. UPPER SIDE RAILS IN PLACE. DISCHARGE HELD TONIGHT PER MD FOR ELEVATED TEMP. WILL CONTINUE TO MONITOR
--- NOTE | 2018-09-27 19:53 | NUR ---
PATIENT IN BED WITH NO DISTRESS NOTED, REMEIN ON ROOM AIR. PERIPHERAL INTACT AND PATENT. ALL NEEDS ATTENDED. BED IN LOW LOCK SETTING, CALL LIGHT WITHIN REACH. WILL ENDORSE TO ONCOMING SHIFT FOR PRASHANT.
[2018-09-27 20:00] VITALS: BP 126/69
--- NOTE | 2018-09-28 06:59 | NUR ---
MS/RN CLOSING NOTES PT ASLEEP, RESPONSIVE TO NAME. REMAINS ON ROOM AIR, BREATHING EVEN AND UNLABORED. DENIES SOB AND PAIN AT THIS TIME. IV TO LEFT HAND PATENT AND INTACT, IVF CURRENTLY ON HOLD. SIERRA AV SHUNT NO BLEEDING NOTED. NO SIGNIFICANT CHANGES OVERNIGHT. ALL NEEDS MET. PT HAD X3 EPISODES OF LOOSE STOOLS. REFUSED BED BATH, ASSISTANCE WITH DIAPER CHANGE AND LINEN CHANGE DESPITE OFFERING MULTIPLE TIMES. NO SIGNIFICANT CHANGES OVERNIGHT. BED IN LOW/LOCKED POSITION WITH CALL LIGHT IN REACH, HOB ELEVATED. BILAT. UPPER SIDE RAILS IN PLACE. WILL ENDORSE TO DAY SHIFT RN PRASHANT.
[2018-09-28 08:00] VITALS: BP 125/64
[2018-09-28] MEDS: VIT B CMPLX 3/FA/VIT C/BIOTIN 1 TAB TABLET PO SCH (09:09)
[2018-09-28] MEDS: PANTOPRAZOLE 40 MG TABLET.DR PO SCH (09:09)
[2018-09-28] MEDS: CLOPIDOGREL BISULFATE 75 MG TABLET PO SCH (09:09)
[2018-09-28] MEDS: LINAGLIPTIN 5 MG TABLET PO SCH (09:09)
[2018-09-28] MEDS: CALCIUM ACETATE 667 MG TABLET PO SCH (09:09)
[2018-09-28] MEDS: FOLIC ACID 1 MG TABLET PO SCH (09:10)
[2018-09-28] MEDS: METOPROLOL SUCCINATE 25 MG TAB.SR.24H PO SCH (09:10)
[2018-09-28] MEDS: hydrALAZINE HCL 25 MG TABLET PO SCH ×3 (09:11→17:19)
[2018-09-28] MEDS: BLOOD SUGAR DIAGNOSTIC 1 EACH STRIP IN SCH ×3 (09:21→17:45)
[2018-09-28] MEDS: LOPERAMIDE HCL (2 MG CAP) 2 MG CAPSULE PO PRN ×3 (10:01→21:34)
--- NOTE | 2018-09-28 15:15 | NUR ---
NOTIFIED HOSPITALIST DR JUNG REGARDING CT ABDOMEN RESULTS. AWAITING FOR RESPONSE IF OK TO D/C PATIENT TO HOME
--- NOTE | 2018-09-28 15:55 | NUR ---
NEW ORDER PER : FLAGYL 500 MG Q8HR IV CEFTRIAXONE 1G. IV 24HR
[2018-09-28 16:00] VITALS: BP 138/61
[2018-09-28] MEDS: METRONIDAZOLE 500MG/ NS 100ML 500 MG in PREMIX 1 EA IV SCH (17:17)
[2018-09-28] MEDS ORDERED: METRONIDAZOLE 500MG/ NS 100ML 500 MG in PREMIX 1 EA IV SCH (18:00)
[2018-09-28] MEDS: CEFTRIAXONE 1 G in IV D5W 50 ML IV SCH (18:40)
--- NOTE | 2018-09-28 19:26 | NUR ---
PATIENT IN BED WITH NO DISTRESS NOTED, REMAINS ON ROOM AIR. PERIPHERAL IV INTACT AND PATENT. ALL NEEDS ATTENDED. BED IN LOW LOCK POSITION, CALL LIGHT WITHIN REACH. WILL ENDORSE TO NEXT SHIFT FOR PRASHANT.
--- NOTE | 2018-09-28 19:30 | NUR ---
MS RN OPENING NOTES Received patient A/O x4, awake on bed, on RA saturating 90%. Per patient, she is on O2 at home. Put on O2 via NC @ 2LPM, no SOB/respiratory distress noted, SpO2 98%. Still with LBM, watery stool with foul smell noted. Denies discomfort at this time. Good perineal care done. With 1/2 NS @ 50ml/hr infusing well at peripheral L hand G#20 no signs of infiltration noted. On fall precautions, call light within easy reach. Will continue to monitor accordingly.
[2018-09-28 20:00] VITALS: BP 120/67
[2018-09-28] MEDS: IV 1/2NS 1000 ML 1,000 ML IV PRN (21:11)
[2018-09-29] MEDS: METRONIDAZOLE 500MG/ NS 100ML 500 MG in PREMIX 1 EA IV SCH ×3 (00:20→16:37)
--- NOTE | 2018-09-29 06:45 | NUR ---
MS RN CLOSING NOTES Patient asleep on bed on Mcnally's position on bed. With O2 @ 2LPM, SpO2 98%. Still with LBM, total x3 within the shift. All due meds given as ordered. All nursing needs attended. Kept bed low and locked, call light within easy reach. Endorsed to the next shift.
[2018-09-29 08:00] VITALS: BP 125/84
[2018-09-29 08:56] LABS: BASOPHILS % (AUTO) 0.2 % (0.0-2.0); EOSINOPHILS % (AUTO) 5.7 % (0.0-6.0); HEMATOCRIT 39 % (33-45); HEMOGLOBIN 12.6 g/dL (11.5-14.8); LYMPHOCYTES # (AUTO) 0.6 /CMM (0.8-4.8); LYMPHOCYTES % (AUTO) 10.6 % (20.0-44.0); MEAN CORPUSCULAR HGB CONC 32 g/dl (31.0-36.0); MEAN CORPUSCULAR VOLUME 99 fL (82-100); MONOCYTES # (AUTO) 1.1 /CMM (0.1-1.30); NEUTROPHILS # (AUTO) 3.9 /CMM (1.8-8.9); NEUTROPHILS % (AUTO) 65.5 % (43.0-81.0); PLATELET COUNT (AUTO) 136 /CMM (150-450); RED BLOOD CELL COUNT(AUTO) 3.92 MIL/uL (4.0-5.2); WHITE BLOOD COUNT (AUTO) 5.9 K/uL (4.3-11.0)
[2018-09-29] MEDS: BLOOD SUGAR DIAGNOSTIC 1 EACH STRIP IN SCH ×3 (09:00→17:59)
[2018-09-29] MEDS: hydrALAZINE HCL 25 MG TABLET PO SCH ×3 (09:00→16:39)
[2018-09-29 09:03] LABS: CALCIUM, SERUM 8.4 mg/dL (8.5-10.1); POTASSIUM 3.9 mmol/L (3.5-5.1)
[2018-09-29] MEDS: PANTOPRAZOLE 40 MG TABLET.DR PO SCH (09:03)
[2018-09-29] MEDS: LINAGLIPTIN 5 MG TABLET PO SCH (09:03)
[2018-09-29] MEDS: FOLIC ACID 1 MG TABLET PO SCH (09:03)
[2018-09-29] MEDS: CALCIUM ACETATE 667 MG TABLET PO SCH (09:03)
[2018-09-29] MEDS: CLOPIDOGREL BISULFATE 75 MG TABLET PO SCH (09:04)
[2018-09-29] MEDS: VIT B CMPLX 3/FA/VIT C/BIOTIN 1 TAB TABLET PO SCH (09:04)
[2018-09-29] MEDS: METOPROLOL SUCCINATE 25 MG TAB.SR.24H PO SCH (09:06)
[2018-09-29 09:09] LABS: CREATININE 10.9 mg/dL (0.6-1.3)
--- NOTE | 2018-09-29 09:10 | NUR ---
IV removed due to leaking
--- NOTE | 2018-09-29 09:30 | NUR ---
Unsuccessful attempt to insert a new IV line. Called ICU nurse for help
--- NOTE | 2018-09-29 10:10 | NUR ---
Unsuccessful attempt to insert IV line by ICU nurse. Will request a midline.
[2018-09-29 13:34] LABS: OCCULT BLOOD STOOL POSITIVE (NEGATIVE)
--- NOTE | 2018-09-29 15:25 | NUR ---
bedside HD with output 2000L . Patient in stable condition , VS within normal range, no distress noted
--- NOTE | 2018-09-29 15:28 | NUR ---
left upper arm new midline G 18. Flushing well.
[2018-09-29] MEDS: CEFTRIAXONE 1 G in IV D5W 50 ML IV SCH (17:51)
--- NOTE | 2018-09-29 19:10 | NUR ---
Patient resting in bed . With O2 @ 2LPM, saturating well. Patient had 2 loose small BM. All nursing needs attended. Kept bed low and locked, call light within easy reach. Will Endorse to the next shift.
--- NOTE | 2018-09-29 19:40 | NUR ---
MS/RN OPENING NOTES PT RECEIVED AWAKE, RESTING COMFORTABLY IN BED. A/OX3. ON 2L O2 VIA NC, BREATHING EVEN AND UNLABORED. DENIES SOB AND PAIN AT THIS TIME. IN NO ACUTE DISTRESS. CLEOPATRA MIDLINE PATENT AND INTACT. IVF ON HOLD. SIERRA SHUNT WITH NO SIGNS OF BLEEDING AT THIS TIME. BED IN LOW/LOCKED POSITION WITH CALL LIGHT IN REACH. BILAT. UPPER SIDE RAILS IN PLACE AND HOB ELEVATED. WILL CONTINUE TO MONITOR
[2018-09-29 20:00] VITALS: BP 121/72
[2018-09-30] MEDS: METRONIDAZOLE 500MG/ NS 100ML 500 MG in PREMIX 1 EA IV SCH ×3 (01:44→17:55)
--- NOTE | 2018-09-30 07:02 | NUR ---
MS/RN CLOSING NOTES PT AWAKE, RESTING COMFORTABLY IN BED. ON/OFF 2L O2 VIA NC, BREATHING EVEN AND UNLABORED. DENIES SOB AND PAIN AT THIS TIME. NO SIGNIFICANT CHANGES OVERNIGHT. CLEOPATRA MIDLINE PATENT AND INTACT. ALL NEEDS MET. BED IN LOW/LOCKED POSITION WITH CALL LIGHT IN REACH, HOB ELEVATED. BILAT. UPPER SIDE RAILS IN PLACE. WILL ENDORSE TO DAY SHIFT RN PRASHANT.
--- NOTE | 2018-09-30 07:54 | NUR ---
MS RN OPENING NOTES RECEIVED PT LAYING IN BED W/ HOB SLIGHTLY ELEVATED. PT IS EASILY AROUSABLE. PT IS A/O X4, AFEBRILE. RESPIRATIONS ARE EVEN AND UNLABORED, NOT IN ANY ACUTE DISTRESS NOTED. PT DENIES ANY PAIN AT THIS TIME, NO C/O SOB,N/V. IV SITE TO CLEOPATRA MIDLINE INTACT, NO INFILTRATION NOTED. DRESSING KEPT CLEAN AND DRY. SAFETY MEASURES ARE IN PLACE. INSTRUCTED PT TO USE CALL LIGHT WHEN ASSISTANCE IS NEEDED, CALL LIGHT IS LEFT WITHIN REACH. WILL MONITOR THROUGHOUT SHIFT FOR CONTINUITY OF CARE.
[2018-09-30 08:00] VITALS: BP 138/74
[2018-09-30] MEDS: CLOPIDOGREL BISULFATE 75 MG TABLET PO SCH (08:46)
[2018-09-30] MEDS: LINAGLIPTIN 5 MG TABLET PO SCH (08:46)
[2018-09-30] MEDS: VIT B CMPLX 3/FA/VIT C/BIOTIN 1 TAB TABLET PO SCH (08:46)
[2018-09-30] MEDS: CALCIUM ACETATE 667 MG TABLET PO SCH (08:46)
[2018-09-30] MEDS: METOPROLOL SUCCINATE 25 MG TAB.SR.24H PO SCH (08:46)
[2018-09-30] MEDS: FOLIC ACID 1 MG TABLET PO SCH (08:46)
[2018-09-30] MEDS: PANTOPRAZOLE 40 MG TABLET.DR PO SCH (08:46)
[2018-09-30] MEDS: BLOOD SUGAR DIAGNOSTIC 1 EACH STRIP IN SCH ×3 (08:47→16:26)
[2018-09-30] MEDS: hydrALAZINE HCL 25 MG TABLET PO SCH ×3 (08:47→16:25)
--- NOTE | 2018-09-30 10:44 | NUR ---
MS SALVADOR NOTES-- PT WAS SEEN AND EXAMINED BY DR. NAREN Reyes/ ORDERS TO HOLD PLAVIX, CONSULT WITH DR. BAPTISTE. READ BACK AND VERIFIED ORDERS. CARRIED OUT. Addendum: 09/30/18 at 1045 by JAMES YANEZ RN INCORRECT PT. DISREGARD NOTE.
--- NOTE | 2018-09-30 10:55 | NUR ---
MS RN NOTES-- PT WAS SEEN AND EXAMINED BY NISHI COLE. POSSIBLE D/C IN AM. WILL CONTINUE TO MONITOR.
--- NOTE | 2018-09-30 14:58 | NUR ---
MS RN NOTES-- PT ABLE TO MAKE NEEDS KNOWN. NEEDS MET AND RENDERED. PT DOES NOT APPEAR TO BE IN ANY ACUTE DISTRESS. WILL CONTINUE TO MONITOR.
[2018-09-30 16:00] VITALS: BP 143/67
[2018-09-30] MEDS: CEFTRIAXONE 1 G in IV D5W 50 ML IV SCH (16:26)
--- NOTE | 2018-09-30 18:41 | NUR ---
MS RN CLOSING NOTES ALL DUE MEDS GIVEN, NEEDS MET AND RENDERED. PT IS A/O X4, AFEBRILE. RESPIRATIONS ARE EVEN AND UNLABORED, NOT IN ANY ACUTE DISTRESS NOTED. PT DENIES ANY PAIN AT THIS TIME, NO C/O SOB, N/V. MIDLINE TO CLEPOATRA INTACT, NO INFILTRATION NOTED. DRESSING KEPT CLEAN AND DRY. SAFETY MEASURES ARE IN PLACE. REMINDED PT TO USE CALL LIGHT WHEN ASSISTANCE IS NEEDED, CALL LIGHT IS LEFT WITHIN REACH. WILL ENDORSE TO NEXT SHIFT FOR CONTINUITY OF CARE.
--- NOTE | 2018-09-30 19:35 | NUR ---
MS/RN OPENING NOTES PT RECEIVE AWAKE, USING THE RESTROOM. ON ROOM AIR, BREATHING EVEN AND UNLABORED. DENIES SOB AND PAIN AT THIS TIME. ASSISTED BACK TO THE BED. CLEOPATRA MIDLINE PATENT AND INTACT. BED IN LOW/LOCKED POSITION WITH CALL LIGHT IN REACH. BILAT. UPPER SIDE RAILS IN PLACE. HOB ELEVATED .WILL CONTINUE TO MONITOR
[2018-09-30 20:00] VITALS: BP 117/43
[2018-10-01] MEDS: METRONIDAZOLE 500MG/ NS 100ML 500 MG in PREMIX 1 EA IV SCH ×2 (00:41→08:33)
[2018-10-01 06:25] LABS: BASOPHILS % (AUTO) 0.7 % (0.0-2.0); EOSINOPHILS % (AUTO) 11.4 % (0.0-6.0); HEMATOCRIT 37 % (33-45); HEMOGLOBIN 12.1 g/dL (11.5-14.8); LYMPHOCYTES # (AUTO) 0.9 /CMM (0.8-4.8); LYMPHOCYTES % (AUTO) 13.3 % (20.0-44.0); MEAN CORPUSCULAR HGB CONC 32 g/dl (31.0-36.0); MEAN CORPUSCULAR VOLUME 98 fL (82-100); MONOCYTES # (AUTO) 1.3 /CMM (0.1-1.30); MONOCYTES % (AUTO) 20.3 % (2.0-12.0); NEUTROPHILS # (AUTO) 3.5 /CMM (1.8-8.9); NEUTROPHILS % (AUTO) 54.3 % (43.0-81.0); PLATELET COUNT (AUTO) 158 /CMM (150-450); RED BLOOD CELL COUNT(AUTO) 3.83 MIL/uL (4.0-5.2); WHITE BLOOD COUNT (AUTO) 6.5 K/uL (4.3-11.0)
[2018-10-01 06:30] LABS: CALCIUM, SERUM 8.1 mg/dL (8.5-10.1)
[2018-10-01 06:37] LABS: CREATININE 11.5 mg/dL (0.6-1.3)
--- NOTE | 2018-10-01 07:57 | NUR ---
MS/RN CLOSING NOTES PT RESTING COMFORTABLY IN BED. ON ROOM AIR, BREATHING EVEN AND UNALBORED. DENIES SOB AND PAIN. NO SIGNIFICANT CHANGES OVERNIGHT. CLEOPATRA MIDLINE PATENT AND INTACT. SIERRA AV SHUNT WITH BRUITT/THRILL. BED IN LOW/LOCKED POSITION WITH CALL LIGHT IN REACH, BILAT. UPPER SIDE RAILS IN PLACE. HOB ELEVATED. ENDORSED TO DAY SHIFT RN PRASHANT
[2018-10-01 08:00] VITALS: BP 140/78
--- NOTE | 2018-10-01 08:07 | NUR ---
MS RN OPENING NOTES RECEIVED PT SITTING UP IN BED. PT IS AWAKE, ALERT AND ORIENTED X4, AFEBRILE. RESPIRATIONS ARE EVEN AND UNLABORED, NOT IN ANY ACUTE DISTRESS NOTED. PT DENIES ANY PAIN AT THIS TIME, NO C/O SOB,N/V. MIDLINE TO CLEOPATRA INTACT, NO INFILTRATION NOTED. DRESSING KEPT CLEAN AND DRY. SAFETY MEASURES ARE IN PLACE. INSTRUCTED PT TO USE CALL LIGHT WHEN ASSISTANCE IS NEEDED, CALL LIGHT IS LEFT WITHIN REACH. WILL MONITOR THROUGHOUT SHIFT FOR CONTINUITY OF CARE.
[2018-10-01] MEDS: LINAGLIPTIN 5 MG TABLET PO SCH (08:33)
[2018-10-01] MEDS: VIT B CMPLX 3/FA/VIT C/BIOTIN 1 TAB TABLET PO SCH (08:33)
[2018-10-01] MEDS: CALCIUM ACETATE 667 MG TABLET PO SCH (08:33)
[2018-10-01] MEDS: FOLIC ACID 1 MG TABLET PO SCH (08:33)
[2018-10-01] MEDS: PANTOPRAZOLE 40 MG TABLET.DR PO SCH (08:33)
[2018-10-01] MEDS: hydrALAZINE HCL 25 MG TABLET PO SCH ×2 (08:34→12:09)
[2018-10-01] MEDS: METOPROLOL SUCCINATE 25 MG TAB.SR.24H PO SCH (08:34)
[2018-10-01] MEDS: BLOOD SUGAR DIAGNOSTIC 1 EACH STRIP IN SCH ×2 (08:34→12:07)
[2018-10-01 08:51] LABS: EOSINOPHILS % (MANUAL) 7 % (0-4); LYMPHOCYTES % (MANUAL) 13 % (16-48); MONOCYTES % (MANUAL) 21 % (0-11.0); NEUTROPHILS % (MANUAL) 59 (42-76)
[2018-10-01] MEDS ORDERED: CLOPIDOGREL BISULFATE 75 MG TABLET PO SCH (09:00)
--- NOTE | 2018-10-01 10:15 | NUR ---
MS RN NOTES-- PT WAS SEEN AND EXAMINED BY NISHI COLE W/ ORDERS FOR DISCHARGE AFTER PT RECEIVES DIALYSIS. PT MADE AWARE AND AGREED.
[2018-10-01 12:09] VITALS: BP 116/58
--- NOTE | 2018-10-01 14:40 | NUR ---
MS RN NOTES-- DIALYSIS NURSE AT BEDSIDE FOR SCHEDULED DIALYSIS. WILL CONTINUE TO MONITOR.
--- NOTE | 2018-10-01 15:50 | NUR ---
MS RN NOTES-- PT FINISHED DIALYSIS W/ 2L OUT. VITAL SIGNS WNL. PT DOES NOT APPEAR TO BE IN ANY ACUTE DISTRESS, DENIES ANY PAIN, NO SOB, N/V. WILL CONTINUE TO MONITOR.
--- NOTE | 2018-10-01 16:00 | NUR ---
MS RN NOTES-- PT READY FOR DISCHARGE.
--- NOTE | 2018-10-01 16:30 | NUR ---
MS SUPERVISOR VARNISH NOTE PT DISCHARGE TO HOME IN MEDICALLY STABLE CONDITION ACCOMPANIED BY LAURENCE. PT IS A/O X4, AFEBRILE. RESPIRATIONS ARE EVEN AND UNLABORED, NOT IN ANY ACUTE DISTRESS NOTED. PUPILS ARE REACTIVE TO LIGHT, BILATERAL HAND BLADE SHARPENER ARE STRONG AND EQUAL. ABDOMEN IS SOFT AND NONDISTENDED, BOWEL SOUNDS ARE PRESENT IN ALL 4 QUADRANTS UPON AUSCULTATION. PT HAD 1 SOFT BROWN BM THIS AM. DENIES ANY BLADDER DISCOMFORT PICTURE TAKEN TO SACRAL AREA. SKIN IS INTACT, KEPT CLEAN AND DRY. MIDLINE ACCESS REMOVED, APPLIED PRESSURE AND TOLERATED WELL. ID BANDS REMOVED. EXPLAINED DISCHARGE PAPERWORK TO PT AND WITH VERBAL AND WRITTEN UNDERSTANDING. ALL BELONGINGS SENT WITH PT. PT LEFT IN STABLE CONDITION VIA WHEELCHAIR ACCOMPANIED BY 1 STAFF TO PERSONAL VEHICLE.
[2018-10-01] MEDS ORDERED: METRONIDAZOLE 500 MG TABLET PO SCH (17:00)
== END 2018-10-01 16:35 | disposition home or self-care (01) | DRG 391 ==
LOC: ER 09:29 → MEDSG2 11:48
PROVIDERS: ADMIT Internal Medicine; ATTEND Nurse Practitioner Acute Care
PROC: 5A1D70Z Performance of Urinary Filtration, Intermittent, Less than 6 Hours Per Day (ICD-10-PCS; principal; 2018-09-29)
PROC: 05H533Z Insertion of Infusion Device into Right Subclavian Vein, Percutaneous Approach (ICD-10-PCS; 2018-09-29)
PROC: B546ZZA Ultrasonography of Right Subclavian Vein, Guidance (ICD-10-PCS; 2018-09-29)
DX: A08.4 Viral intestinal infection, unspecified (principal); N18.6 End stage renal disease; I12.0 Hypertensive chronic kidney disease with stage 5 chronic kidney disease or end stage renal disease; E87.1 Hypo-osmolality and hyponatremia; D69.6 Thrombocytopenia, unspecified; D63.8 Anemia in other chronic diseases classified elsewhere; E11.22 Type 2 diabetes mellitus with diabetic chronic kidney disease; E78.5 Hyperlipidemia, unspecified; K21.9 Gastro-esophageal reflux disease without esophagitis; Z79.02 Long term (current) use of antithrombotics/antiplatelets; Z79.4 Long term (current) use of insulin; Z79.899 Other long term (current) drug therapy; Z99.2 Dependence on renal dialysis
CPT/HCPCS: 36415; 71045-TC; 80048-TC; 80053-TC; 80061-TC; 80076-TC; 82272-TC; 82962-TC; 83605-TC; 83735-TC; 84100-TC; 85025-TC; 86706; 87040-TC; 87045-TC; 87081-TC; 87086-TC; 87340; 89055; 90935-TC; A4216; A6403; G0378; J0696; J3490; J7030; J7060

== ENCOUNTER 2022-10-01 02:30 | Inpatient (IN) | payer OTHER ==
[~2022-10-01] VITALS: Ht 172.7 cm; Wt 85.7 kg
[~2022-10-01 02:30] MED LIST changes: -CLON0.1T PO; +CLOP75TA15 PO; -INSU100I19 SQ; -INSU100V27 SQ; +LINA5TAB PO; -METO1TAB39 PO; +METO25TA4 PO; +PANT40TA49 PO
--- NOTE | 2022-10-01 02:40 | NUR ---
REPEAT BS 52mg/dl
--- NOTE | 2022-10-01 02:43 | NUR ---
BIBRA89 FR HOME W/ CC HYPOGLYCEMIA, BS 41. GLUCAGON 1MG GIVEN. REPEAT BS 51 PONY ROUGHER. PLACED IN BED, VITALS CHECKED.
[2022-10-01] MEDS ORDERED: DEXTROSE 50%-WATER 50 ML DISP.SYRIN ONE ×2 (02:55→04:56)
[2022-10-01] MEDS ORDERED: MISCELLANEOUS MED 1 EA EA XX ONE ×2 (03:00→05:00)
[2022-10-01 03:51] LABS: BASOPHILS % (AUTO) 0.1 % (0.0-2.0); EOSINOPHILS % (AUTO) 0.3 % (0.0-6.0); HEMATOCRIT 36 % (33-45); HEMOGLOBIN 11.3 g/dL (11.5-14.8); LYMPHOCYTES # (AUTO) 0.5 K/uL (0.8-4.8); LYMPHOCYTES % (AUTO) 3.8 % (20.0-44.0); MEAN CORPUSCULAR HGB CONC 32 g/dl (31.0-36.0); MEAN CORPUSCULAR VOLUME 98 fL (82-100); MONOCYTES # (AUTO) 0.9 K/uL (0.1-1.30); MONOCYTES % (AUTO) 6.2 % (2.0-12.0); NEUTROPHILS # (AUTO) 12.5 K/uL (1.8-8.9); NEUTROPHILS % (AUTO) 89.6 % (43.0-81.0); PLATELET COUNT (AUTO) 154 K/uL (150-450); RED BLOOD CELL COUNT(AUTO) 3.65 MIL/uL (4.0-5.2); WHITE BLOOD COUNT (AUTO) 13.9 K/uL (4.3-11.0)
[2022-10-01 04:04] LABS: ALANINE AMINOTRANSFERASE 19 U/L (12-78); ALBUMIN 3.4 g/dL (3.4-5.0); ALKALINE PHOSPHATASE 260 U/L (46-116); ASPARTATE AMINOTRANSFERASE 29 U/L (15-37); BILIRUBIN,DIRECT 0.2 mg/dL (0.0-0.2); BILIRUBIN,TOTAL 0.4 mg/dL (0.2-1.0); CALCIUM, SERUM 8.5 mg/dL (8.5-10.1); CARBON DIOXIDE 26 mmol/L (21-32); CHLORIDE 96 mmol/L (98-107); GLUCOSE 132 mg/dL (74-106); LIPASE 483 U/L (73-393); MAGNESIUM 2.5 mg/dL (1.8-2.4); PHOSPHORUS 2.4 mg/dL (2.5-4.9); POTASSIUM 4.6 mmol/L (3.5-5.1); SODIUM SERUM 133 mmol/L (136-145); TOTAL PROTEIN, SERUM 8.9 g/dL (6.4-8.2); UREA NITROGEN, BLOOD 66 mg/dL (7-18)
[2022-10-01 04:08] LABS: CREATININE 9.8 mg/dL (0.6-1.3)
--- NOTE | 2022-10-01 04:16 | NUR ---
CREATININE 9.8; DR IBRAHIMA WEBB AWARE
--- NOTE | 2022-10-01 04:55 | NUR ---
BS=25, PATIENT AWAKE, ALERT, DIAPHORETIC. MD AT BEDSIDE. ORDER RECEIVED FOR D50 X1 AND D5W 1L TO BE GIVEN.
[2022-10-01] MEDS ORDERED: IV D5W 1,000 ML IV ONE (05:00)
--- NOTE | 2022-10-01 05:04 | NUR ---
MOVE SHEET SUBMITTED
--- NOTE | 2022-10-01 05:27 | NUR ---
KV=366. D5W CURRENTLY INFUSING ORDERED.
--- NOTE | 2022-10-01 05:33 | NUR ---
DR ALEXANDRA ON PHONE CALL WITH SISSY FLAHERTY NP
--- NOTE | 2022-10-01 05:46 | NUR ---
PT TAKEN TO CT VIA GOLDIE
[2022-10-01 05:54] LABS: THYROID STIMULATING HORMONE 0.639 uIU/mL (0.358-3.74)
[2022-10-01] MEDS ORDERED: ACETAMINOPHEN 325 MG TABLET PO PRN (06:00)
[2022-10-01] MEDS ORDERED: ONDANSETRON HCL/PF 4 MG/2 ML VIAL IVP PRN (06:00)
[2022-10-01] MEDS ORDERED: IV D5/ 0.9% NACL 1,000 ML IV PRN (06:00)
[2022-10-01] MEDS: BLOOD SUGAR DIAGNOSTIC 1 EACH STRIP IN SCH ×10 (06:00→23:49)
--- NOTE | 2022-10-01 06:24 | NUR ---
LATEST BS 84. NISHI SHEEHAN MADE AWARE, AWAITING FOR FURTHER ORDER.
--- NOTE | 2022-10-01 06:24 | NUR ---
REPORT GIVEN TO MODESTO HERRON
--- NOTE | 2022-10-01 06:45 | NUR ---
OFFICE CLERK ROUTINE admission note Pt is a 72 y/o female, admitted for hypoglycemia, transferred from ER at this time via gurney, accompanied by 2 RNS, awake, A&Ox3, verbal and able to make needs know, VS in stable condition, pt denies any pain, pt made comfortable in bed, and oriented to room and call light, pt on RA breathing even and unlabored, no s/s of acute distress, tele monitor showing V pacing 70, all safety measures are in place, will continue to monitor
--- NOTE | 2022-10-01 06:46 | NUR ---
PT BEING TRANSFERED TO [facility] VIA ACLS PROTOCOL. VSS. ALL BELONGINGS WITH PT
--- NOTE | 2022-10-01 07:05 | NUR ---
MUSIC ARTIST OPENING NOTES Received pt awake in bed AOX4. No complaints of pain or discomfort at this time. Pt is on RA and tolerating it well. IV access on left wrist 22G. Pt has a AISHWARYA fistula. HOB levated to pts comfort. Siderails up at all times. Call light within reach. Will continue to monitor.
[2022-10-01 08:00] VITALS: BP 131/68; TEMP 98.7
[2022-10-01] MEDS: PANTOPRAZOLE 40 MG TABLET.DR PO SCH (08:09)
[2022-10-01] MEDS: ENOXAPARIN SODIUM 30 MG/0.3 ML DISP.SYRIN SQ SCH (08:10)
[2022-10-01] MEDS: DEXTROSE 50%-WATER 50 ML DISP.SYRIN IV PRN ×6 (10:32→23:49)
[2022-10-01 12:00] VITALS: BP 111/74; TEMP 98.3
[2022-10-01 16:00] VITALS: BP 107/56; TEMP 98.3
--- NOTE | 2022-10-01 16:51 | NUR ---
MUSICAL THERAPIST NOTES Dextrose vial medication was cracked when opening from the [facility]. Pharmacy called to and made aware and instructed to get new dose from [facility].
[2022-10-01] MEDS: IV 10% DEXTROSE 1,000 ML IV SCH (17:53)
--- NOTE | 2022-10-01 18:00 | NUR ---
CLARIFIER NOTES New order from Dr. Polanco to discontinue current IVF and change to Dextrose 10% @ 75cc/hr. Noted and carried out. CN aware.
--- NOTE | 2022-10-01 18:35 | NUR ---
SUGAR GRINDER NOTES All due meds and tx given as ordered. Pt tolerated everything well. All needs attended to. Fazal light within reach. Will endorse to oncoming nurse.
--- NOTE | 2022-10-01 19:30 | NUR ---
PT AWAKE. A/OX4. ON RA, O2 SAT AT 98%. ON TELE MONITOR SHOWING SR. ANURIC. PACE MAKER ON LT ANTERIOR CHEST WALL. HAS RT AV FISTULA. IV ACCESS ON LT WRIST #22G INFUSING D10 AT 75 ML/HR. SAFETY MEASURES IN PLACE. CALL LIGHT WITHIN REACH. WILL CONTINUE PLAN OF CARE.
[2022-10-01 20:00] VITALS: BP 121/65; TEMP 98
[2022-10-02] VITALS: BP 122/61; TEMP 98
[2022-10-02] MEDS: BLOOD SUGAR DIAGNOSTIC 1 EACH STRIP IN SCH ×11 (02:01→22:11)
[2022-10-02] MEDS: DEXTROSE 50%-WATER 50 ML DISP.SYRIN IV PRN ×4 (02:01→10:37)
[2022-10-02 04:00] VITALS: BP 120/64; TEMP 98.2
[2022-10-02] MEDS ORDERED: DEXTROSE 50%-WATER 50 ML DISP.SYRIN ONE (05:53)
[2022-10-02] MEDS: IV 10% DEXTROSE 1,000 ML IV SCH (05:55)
[2022-10-02 07:23] LABS: BASOPHILS % (AUTO) 0.2 % (0.0-2.0); EOSINOPHILS % (AUTO) 1.6 % (0.0-6.0); HEMATOCRIT 34 % (33-45); HEMOGLOBIN 11.2 g/dL (11.5-14.8); LYMPHOCYTES # (AUTO) 1.2 K/uL (0.8-4.8); LYMPHOCYTES % (AUTO) 15.6 % (20.0-44.0); MEAN CORPUSCULAR HGB CONC 33 g/dl (31.0-36.0); MEAN CORPUSCULAR VOLUME 97 fL (82-100); MONOCYTES # (AUTO) 1.1 K/uL (0.1-1.30); MONOCYTES % (AUTO) 15.1 % (2.0-12.0); NEUTROPHILS % (AUTO) 67.5 % (43.0-81.0); PLATELET COUNT (AUTO) 150 K/uL (150-450); RED BLOOD CELL COUNT(AUTO) 3.55 MIL/uL (4.0-5.2); WHITE BLOOD COUNT (AUTO) 7.4 K/uL (4.3-11.0)
--- NOTE | 2022-10-02 07:28 | NUR ---
NEEDS ATTENDED. DUE MEDS GIVEN NEEDED AND ORDERED. HAND OVER REPORT GIVEN TO CARLENE SALVADOR FOR CONTINUATION OF CARE.
[2022-10-02 07:46] LABS: CALCIUM, SERUM 7.9 mg/dL (8.5-10.1); CARBON DIOXIDE 23 mmol/L (21-32); CHLORIDE 91 mmol/L (98-107); GLUCOSE 93 mg/dL (74-106); LIPASE 279 U/L (73-393); MAGNESIUM 2.3 mg/dL (1.8-2.4); POTASSIUM 5.2 mmol/L (3.5-5.1); SODIUM SERUM 124 mmol/L (136-145); UREA NITROGEN, BLOOD 74 mg/dL (7-18)
[2022-10-02 07:48] LABS: CREATININE 10.4 mg/dL (0.6-1.3)
[2022-10-02 08:00] VITALS: BP 127/64; TEMP 98.1
[2022-10-02] MEDS: PANTOPRAZOLE 40 MG TABLET.DR PO SCH (08:20)
[2022-10-02] MEDS: ENOXAPARIN SODIUM 30 MG/0.3 ML DISP.SYRIN SQ SCH (08:23)
[2022-10-02 08:32] LABS: CHOLESTEROL 107 mg/dL (<200); HDL CHOLESTEROL 63 mg/dL (40-60); LDL 42 mg/dL (0-99); TRIGLYCERIDES 43 mg/dL (30-150)
--- NOTE | 2022-10-02 10:00 | NUR ---
RN NOTES: LEFT WRIST SALINE LOCK INFILTRATED SPOKE TO DR MARIA WITH ORDER TO DC IV DEXTROSE 10% ENCOURAGE PT TO DRINK JUICE WITH SUGAR, UNABLE TO OBTAIN NEW SALINE LOCK WITH ORDER OF MIDLINE AWAITING FOR MIDLINE
--- NOTE | 2022-10-02 11:16 | NUR ---
RN NOTES: SPOKE TO DR TED DREW PT RIGHT ARM WITH AFV LEFT ARM SWOLLEN MULTIPLE UNSUCCESSFUL ATTEMPT PT NEED MULTIPLE IV WITH DEXTROSE DUE TO PERSISTENT HYPOGLYCEMIA, NURSING SKIN FITTER AWARE
[2022-10-02 12:00] VITALS: BP 126/74; TEMP 98.4
[2022-10-02 16:00] VITALS: BP 142/70; TEMP 98.2
--- NOTE | 2022-10-02 16:00 | NUR ---
RN NOTES: BUNDLER CAME ASKED TO TAKE PT TO CT HE STATED OK PER PROTOCOL TO HAVE CT DONE TODAY LONG CT DONE WITHIN 24 HOUR, OK PER DR JEAN, BUNDLER WAS ABLE TO INSERT SALINE LOCK TO LEFT FOREARM USING GAUGE [address] ABDOMEN WITH CONTRAST
[2022-10-02] MEDS ORDERED: IOHEXOL-300 100 ML VIAL IV ONE (16:20)
[2022-10-02] MEDS ORDERED: IV NS 0.9% 250 ML IV ONE (16:20)
[2022-10-02] MEDS ORDERED: CT SWABBABLE VALVE TRANS SET 1 EA INFUS.SET MC ONE (16:20)
[2022-10-02] MEDS ORDERED: SEVE800T28 PO (16:49)
--- NOTE | 2022-10-02 18:00 | NUR ---
RN NOTES: PER DR MARIA GIVE APPLE JUICE WITH SUGAR ENCOURAGE PT ALL DAY TO DRINK APPLE JUICE WITH SUGAR NOTED BETTER BLOOD SUGAR IS BETTER WILL MONITOR
--- NOTE | 2022-10-02 19:00 | NUR ---
RN CLOSING NOTES: PT AWAKE. A/OX4. ON RA, O2 SAT AT 98%. ON TELE MONITOR SHOWING SR. ANURIC. PACE MAKER ON LT ANTERIOR CHEST WALL. HAS RT AV FISTULA. IV ACCESS ON LT FOREARM #20G PATENT AND FLUSHING WELL. SAFETY MEASURES IN PLACE. CALL LIGHT WITHIN REACH. ENDORSED TO STERILE INSTRUMENT TECHNICIAN RN FOR PRASHANT
--- NOTE | 2022-10-02 19:30 | NUR ---
RN OPENING NOTES RECEIVED PT IN BED, AWAKE, AAO X4. ON RA, O2 SAT AT 98%. ON SEMICONDUCTOR PROCESSING GROUP LEADER SHOWING V PACING, HR IN THE 70'S. PACEMAKER ON L ANTERIOR CHEST WALL AND R AV FISTULA NOTED. IV ACCESS ON LFA #20G S/L INTACT AND PATENT. SAFETY MEASURES IN PLACE: CALL LIGHT WITHIN REACH, SIDE RAILS UP X2, BED ALARM ON.
[2022-10-02 20:00] VITALS: BP 127/71; TEMP 98.6
--- NOTE | 2022-10-02 21:19 | NUR ---
RN NOTE CLEOPATRA MIDLINE INSERTED BY MIDLINE NURSE GITA. INTACT AND FLUSHES WELL. DRESSING IS CLEAN AND DRY.
[2022-10-03] VITALS: BP 151/58; TEMP 98.2
[2022-10-03] MEDS: BLOOD SUGAR DIAGNOSTIC 1 EACH STRIP IN SCH ×12 (00:17→22:15)
[2022-10-03 04:00] VITALS: BP 145/76; TEMP 98.2
--- NOTE | 2022-10-03 06:33 | NUR ---
RN CLOSING NOTES PT IN BED, AWAKE, AAO X4. ON RA, O2 SAT AT 98%. ON RIGGING ENGINEER SHOWING V PACING, HR IN THE 70'S. PACEMAKER ON L ANTERIOR CHEST WALL AND R AV FISTULA NOTED. IV ACCESS ON LFA #20G S/L AND CLEOPATRA MIDLINE BOTH INTACT AND PATENT. ALL NEEDS ATTENDED. MAINTAINED BLOOD SUGAR ABOVE 90 THROUGHOUT THE SHIFT. SAFETY MEASURES IN PLACE: CALL LIGHT WITHIN REACH, SIDE RAILS UP X2, BED ALARM ON.
[2022-10-03 07:08] LABS: ALANINE AMINOTRANSFERASE 19 U/L (12-78); ALKALINE PHOSPHATASE 207 U/L (46-116); ASPARTATE AMINOTRANSFERASE 32 U/L (15-37); BILIRUBIN,TOTAL 0.5 mg/dL (0.2-1.0); CALCIUM, SERUM 8.1 mg/dL (8.5-10.1); CARBON DIOXIDE 24 mmol/L (21-32); CHLORIDE 94 mmol/L (98-107); GLUCOSE 99 mg/dL (74-106); MAGNESIUM 2.4 mg/dL (1.8-2.4); PHOSPHORUS 2.7 mg/dL (2.5-4.9); POTASSIUM 5.3 mmol/L (3.5-5.1); SODIUM SERUM 125 mmol/L (136-145); TOTAL PROTEIN, SERUM 8.4 g/dL (6.4-8.2); UREA NITROGEN, BLOOD 43 mg/dL (7-18)
[2022-10-03 07:09] LABS: CREATININE 8.1 mg/dL (0.6-1.3)
[2022-10-03 07:12] LABS: BASOPHILS % (AUTO) 0.3 % (0.0-2.0); EOSINOPHILS % (AUTO) 3.9 % (0.0-6.0); HEMATOCRIT 36 % (33-45); HEMOGLOBIN 11.8 g/dL (11.5-14.8); LYMPHOCYTES # (AUTO) 0.8 K/uL (0.8-4.8); MEAN CORPUSCULAR HGB CONC 33 g/dl (31.0-36.0); MEAN CORPUSCULAR VOLUME 98 fL (82-100); MONOCYTES # (AUTO) 1.1 K/uL (0.1-1.30); MONOCYTES % (AUTO) 20.2 % (2.0-12.0); NEUTROPHILS # (AUTO) 3.2 K/uL (1.8-8.9); NEUTROPHILS % (AUTO) 59.6 % (43.0-81.0); PLATELET COUNT (AUTO) 105 K/uL (150-450); RED BLOOD CELL COUNT(AUTO) 3.69 MIL/uL (4.0-5.2); WHITE BLOOD COUNT (AUTO) 5.3 K/uL (4.3-11.0)
--- NOTE | 2022-10-03 07:12 | NUR ---
ACCOUNTING BOOKKEEPER OPENING NOTES PT RECEIVED IN BED, AWAKE. ON RA, O2 SAT AT 98%. TELE MONITOR. PACEMAKER ON L ANTERIOR CHEST WALL AND R AV FISTULA NOTED. IV ACCESS ON LFA #20G S/L AND CLEOPATRA MIDLINE BOTH INTACT AND PATENT. SAFETY MEASURES IN PLACE: CALL LIGHT WITHIN REACH, SIDE RAILS UP X2, BED ALARM ON. WILL CONTINUE TO MONITOR.
--- NOTE | 2022-10-03 07:50 | NUR ---
0800 BLOOD SUGAR 90. APPLE JUICE AND 4 PACKETS OF SUGAR GIVEN.
[2022-10-03 08:00] VITALS: BP 153/73; TEMP 98.1
[2022-10-03] MEDS: ENOXAPARIN SODIUM 30 MG/0.3 ML DISP.SYRIN SQ SCH (08:28)
[2022-10-03] MEDS: PANTOPRAZOLE 40 MG TABLET.DR PO SCH (08:28)
[2022-10-03] MEDS: HEPARIN SODIUM, PORCINE 5000 UNITS/1 ML VIAL SQ SCH ×2 (09:00→21:46)
--- NOTE | 2022-10-03 09:04 | NUR ---
0900 HEPARIN NOT ADMINISTERED LOVENOX WAS ADMINISTERED BEFORE IT WAS DISCONTINUED BY PHARMACY.
--- NOTE | 2022-10-03 10:05 | NUR ---
1000 ACCU CHECK 113. APPLE JUICE AND SUGAR GIVEN.
[2022-10-03 12:00] VITALS: BP 131/62; TEMP 98.6
[2022-10-03 16:00] VITALS: BP 143/72; TEMP 99.1
--- NOTE | 2022-10-03 18:35 | NUR ---
ENGINEERING TECH CLOSING NOTES All due meds and tx given as ordered. Pt tolerated everything well. All needs attended to. Call light within reach. Will endorse to oncoming nurse.
[2022-10-03 20:00] VITALS: BP 128/69; TEMP 98.4
--- NOTE | 2022-10-03 20:01 | NUR ---
PATTERN SHOP SUPERVISOR OPENING NOTE PATIENT AWAKE IN BED WITH FAMILY AT BEDSIDE, ALERT/ORIENTED X 4, PT ABLE TO MAKE NEEDS KNOWN. PATIENT STABLE ON RA, NO S/S OF DISTRESS OR SOB NOTED, BREATHING EVEN AND UNLABORED. PATIENT ON EXTERNAL BOTTLE LABELER READING V-PACING, HR: 82. IV ACCESS ON LFA #22G AND CLEOPATRA MIDLINE BOTH INTACT AND SALINE LOCKED. PATIENT NOTED WITH RIGHT AV FISTULA. SAFETY MEASURES IN PLACE: CALL LIGHT WITHIN REACH, SIDE RAILS UP X 2, BED LOCKED IN LOWEST POSITION. WILL CONTINUE TO MONITOR PATIENT
[2022-10-04] VITALS: BP 133/72; TEMP 98.6
[2022-10-04] MEDS: BLOOD SUGAR DIAGNOSTIC 1 EACH STRIP IN SCH ×6 (00:05→10:33)
[2022-10-04 04:20] VITALS: BP 138/72; TEMP 98.8
--- NOTE | 2022-10-04 06:35 | NUR ---
CARD HANGER CLOSING NOTE PATIENT AWAKE IN BED, ALERT/ORIENTED X 4, PT ABLE TO MAKE NEEDS KNOWN. PATIENT STABLE ON RA, NO S/S OF DISTRESS OR SOB NOTED, BREATHING EVEN AND UNLABORED. PATIENT ON EXTERNAL SIGNALS INTELLIGENCE ANALYST READING V-PACING, HR: 93. IV ACCESS ON LFA #22G AND CLEOPATRA MIDLINE BOTH INTACT AND SALINE LOCKED. PATIENT NOTED WITH RIGHT AV FISTULA. MEDICATIONS GIVEN ORDERED, PT NEEDS MET THROUGHOUT SHIFT, BLOOD SUGARS WNL ALL SHIFT. SAFETY MEASURES IN PLACE: CALL LIGHT WITHIN REACH, SIDE RAILS UP X 2, BED LOCKED IN LOWEST POSITION. WILL ENDORSE TO DAYSHIFT RN FOR CONTINUITY OF CARE
[2022-10-04 06:50] LABS: CALCIUM, SERUM 8.4 mg/dL (8.5-10.1); CARBON DIOXIDE 27 mmol/L (21-32); CHLORIDE 98 mmol/L (98-107); CREATININE 7.4 mg/dL (0.6-1.3); GLUCOSE 121 mg/dL (74-106); POTASSIUM 4.9 mmol/L (3.5-5.1); SODIUM SERUM 133 mmol/L (136-145); UREA NITROGEN, BLOOD 37 mg/dL (7-18)
[2022-10-04 08:00] VITALS: BP 147/70; TEMP 98.8
[2022-10-04] MEDS: PANTOPRAZOLE 40 MG TABLET.DR PO SCH (08:19)
[2022-10-04] MEDS: HEPARIN SODIUM, PORCINE 5000 UNITS/1 ML VIAL SQ SCH (09:33)
--- NOTE | 2022-10-04 10:51 | NUR ---
WORD PROCESSING SPECIALIST NOTE PER DR JEAN OK TO DOWNGRADE TO MED SURG UNIT AND OK TO DO ACCU CHECK Q 4 HOUR , ORDER CARRIED OUT
[2022-10-04] MEDS ORDERED: BLOOD SUGAR DIAGNOSTIC 1 EACH STRIP IN SCH (11:00)
--- NOTE | 2022-10-04 11:18 | NUR ---
RN NOTE BLOOD SUGAR WAS TAKEN AT 1027 AM. PER MD ORDER, WE ARE DOING Q4H
[2022-10-04 12:00] VITALS: BP 150/62; TEMP 98.7
--- NOTE | 2022-10-04 15:12 | NUR ---
RN NOTE PATIENT WAS DISCHARGE TO HOME IN A STABLE CONDITION, ALERT AND ORIENTED X4 ON ROOM AIR 02 SAT AT 100%. NO SOB PAIN , OR DISTRESS NOTED. IV ACCESS WAS REMOVED, NO BLEEDING NOTED, DRESSING INTACT, PATIENT SIGNED ALL DISCHARGE PAPERS INCLUDING BELONGS. PATIENT TOOK ALL HER BELONGINGS. PATIENT LEFT IN STABLE CONDITION VIA WHEELCHAIR, PRIVATE CAR. DISCHARGE INSTRUCTIONS GIVEN AND PATIENT VERBALIZED INSTRUCTIONS.
== END 2022-10-04 15:15 | disposition home or self-care (01) | DRG 638 ==
LOC: ER 02:35 → TELE1 05:41 → MEDSG1 10-04 10:48
PROC: 5A1D70Z Performance of Urinary Filtration, Intermittent, Less than 6 Hours Per Day (ICD-10-PCS; principal; 2022-10-02)
PROC: 05HC33Z Insertion of Infusion Device into Left Basilic Vein, Percutaneous Approach (ICD-10-PCS; 2022-10-02)
DX: E11.649 Type 2 diabetes mellitus with hypoglycemia without coma (principal); E87.1 Hypo-osmolality and hyponatremia; I12.0 Hypertensive chronic kidney disease with stage 5 chronic kidney disease or end stage renal disease; N18.6 End stage renal disease; E11.22 Type 2 diabetes mellitus with diabetic chronic kidney disease; Z95.0 Presence of cardiac pacemaker; Z99.2 Dependence on renal dialysis; Z79.84 Long term (current) use of oral hypoglycemic drugs; Z79.899 Other long term (current) drug therapy; Z79.02 Long term (current) use of antithrombotics/antiplatelets; M89.8X9 Other specified disorders of bone, unspecified site; E78.5 Hyperlipidemia, unspecified; D63.8 Anemia in other chronic diseases classified elsewhere; K80.20 Calculus of gallbladder without cholecystitis without obstruction; K82.8 Other specified diseases of gallbladder; D72.829 Elevated white blood cell count, unspecified; N28.1 Cyst of kidney, acquired
CPT/HCPCS: 36415; 71045-TC; 74178; 80048-TC; 80053-TC; 80061-TC; 80076-TC; 82010-TC; 82533; 82962-TC; 83605-TC; 83690-TC; 83735-TC; 84100-TC; 84443-TC; 85025-TC; 86706; 87081-TC; 87340; 90935-TC; 93307-TC; 97116-TC; 97530-TC; A4223; A6403; G0378; J1644; J1650; J3490; J7030; J7042; J7050; J7070; Q9967